=== PATIENT | female | born 1995 | race Caucasian/White ===

== ENCOUNTER 2017-07-19 20:35 | Emergency (ER) | payer MEDICAID, OTHER ==
[~2017-07-19] VITALS: Ht 175.3 cm; Wt 66.2 kg
[2017-07-19 20:38] VITALS: BP 117/76
--- NOTE | 2017-07-19 20:45 | NUR ---
pt assisted back to lobby
--- NOTE | 2017-07-19 22:39 | NUR ---
PT AMBULATED TO BED 12
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
--- NOTE | 2017-07-19 23:46 | NUR ---
PT RETURN FROM CT TO BED 12
[2017-07-20] MEDS ORDERED: IBUPROFEN 800 MG TAB PO ONE (00:25)
[2017-07-20 00:55] VITALS: BP 121/65
--- NOTE | 2017-07-20 00:56 | NUR ---
Patient discharged with v/s stable. Written and verbal after care instructions given and explained. Patient alert, oriented and verbalized understanding of instructions. Ambulatory with steady gait. All questions addressed prior to discharge. ID band removed. Patient advised to follow up with PMD. Rx of IBUPROFEN, CYCLOBENAPRINE given. Patient educated on indication of medication including possible reaction and side effects. Opportunity to ask questions provided and answered.
== END 2017-07-20 00:56 | disposition home or self-care (01) ==
LOC: MED 20:35
DX: S93.402A Sprain of unspecified ligament of left ankle, initial encounter (principal); S83.92XA Sprain of unspecified site of left knee, initial encounter; S70.02XA Contusion of left hip, initial encounter; Z88.0 Allergy status to penicillin; W22.8XXA Striking against or struck by other objects, initial encounter; Y93.89 Activity, other specified; Y92.89 Other specified places as the place of occurrence of the external cause; Y99.8 Other external cause status
CPT/HCPCS: 72100; 72170; 73562; 73610; 81025; 99284

== ENCOUNTER 2020-11-02 12:54 | Emergency (ER) | payer MEDICAID, OTHER ==
[~2020-11-02] VITALS: Ht 175.3 cm; Wt 53.1 kg
[2020-11-02 13:05] VITALS: BP 122/89
--- NOTE | 2020-11-02 13:09 | NUR ---
PT AMBULATED TO BED 9.
--- NOTE | 2020-11-02 13:15 | NUR ---
24/F presents to ED c/o bump to back of head near the neck. Pt states she noticed it this morning and noted pain with palpation to bump. Pt denies any trauma or injury to head. Denies fever or chills. Denies any other symptoms.
--- NOTE | 2020-11-02 13:33 | NUR ---
Patient discharged with v/s stable. Written and verbal after care instructions given and explained. Patient verbalized understanding. Ambulatory with steady gait. All questions addressed prior to discharge. Advised to follow up with PMD.
== END 2020-11-02 13:33 | disposition home or self-care (01) ==
LOC: MED 12:54
DX: R22.0 Localized swelling, mass and lump, head (principal); Z88.0 Allergy status to penicillin
CPT/HCPCS: 99281

== ENCOUNTER 2022-10-10 17:10 | Emergency (ER) | payer OTHER ==
[~2022-10-10] VITALS: Ht 177.8 cm; Wt 56.0 kg
[2022-10-10 17:30] VITALS: BP 121/80; PULSE 76; RESP 20; TEMP 98.3; O2SAT 99
[2022-10-10 18:40] LABS: BASOPHILS % (AUTO) 0.4 % (0.0-2.0); EOSINOPHILS # (AUTO) 0.1 K/uL (0-0.4); EOSINOPHILS % (AUTO) 0.8 % (0.0-4.0); HEMATOCRIT 38.1 % (36-48); HEMOGLOBIN 12.8 g/dL (12.0-16.0); LYMPHOCYTES # (AUTO) 1.7 K/uL (2.5-16.5); LYMPHOCYTES % (AUTO) 23.2 % (20.5-51.1); MEAN CORPUSCULAR HEMOGLOBIN 28 pg (27-31); MEAN CORPUSCULAR HGB CONC 34 g/dL (33-37); MEAN CORPUSCULAR VOLUME 83.5 fL (80-94); MONOCYTES # (AUTO) 0.8 K/uL (0.8-1.0); MONOCYTES % (AUTO) 10.1 % (1.7-9.3); NEUTROPHILS # (AUTO) 4.9 K/uL (1.8-7.7); NEUTROPHILS % (AUTO) 65.5 % (42.2-75.2); PLATELET COUNT (AUTO) 213 K/uL (140-450); RED BLOOD CELL COUNT(AUTO) 4.57 MIL/uL (4.20-5.40); RED CELL DISTRIBUTION WIDTH 15.5 % (11.6-13.7); WHITE BLOOD COUNT (AUTO) 7.5 K/uL (4.8-10.8)
[2022-10-10 19:11] LABS: ALBUMIN 3.8 g/dL (3.4-5.0); ANION GAP 12.6 (8-16); CARBON DIOXIDE 26.9 mmol/L (21-32); CREATININE 0.8 mg/dL (0.6-1.3); POTASSIUM 3.5 mmol/L (3.5-5.1); TOTAL BILIRUBIN 2.8 mg/dL (0.0-1.0)
--- NOTE | 2022-10-10 20:13 | NUR ---
PT TAKEN TO BED 7
--- NOTE | 2022-10-10 20:14 | NUR ---
Dr. Zamudio examining patient.
--- NOTE | 2022-10-10 20:15 | NUR ---
URINE WALKED TO LAB.
--- NOTE | 2022-10-10 20:18 | NUR ---
26 YO F BIB SELF C/O VAGINAL BLEEDING X 3 MONTHS. PT STATES VAGINAL BLEEDING AMOUNT IN CONSTANTLY FLUCTUATING WITH HEAVY BLEEIDNG ONE DAY THEN LIGHT BLEEDING THE NEXT. PT STATES SHE HAS DIZZINESS AND GENERALIZED WEAKNESS. AXO4. BED IN LOWEST POSITION. CALL LIGHT WITHIN REACH. NKDA NO MED HX.
[2022-10-10 20:48] LABS: APPEARANCE,URINE CLEAR (CLEAR); BILIRUBIN,URINE NEGATIVE (NEGATIVE); BLOOD, URINE 1+ (NEGATIVE); COLOR,URINE YELLOW (YELLOW); LEUKOCYTE ESTERASE ,URINE NEGATIVE (NEGATIVE); NITRITE, URINE NEGATIVE (NEGATIVE); UGLUCOSE NEGATIVE (NEGATIVE)
[2022-10-10 21:04] LABS: RBC,URINE 0-5 /HPF (0-5); TRICHOMONAS,URINE None Seen /HPF (None Seen); YEAST,URINE None Seen /HPF (None Seen)
[2022-10-10 21:53] VITALS: BP 97/63; PULSE 80; RESP 18; O2SAT 99
== END 2022-10-10 21:50 | disposition home or self-care (01) ==
LOC: MED 17:10
DX: N93.9 Abnormal uterine and vaginal bleeding, unspecified (principal); N83.202 Unspecified ovarian cyst, left side; Z88.0 Allergy status to penicillin
CPT/HCPCS: 36415; 76830; 80053; 81001; 81025; 85025; 99284